=== PATIENT | male | born 1965 | race Caucasian/White ===

== ENCOUNTER 2017-07-17 00:37 | Emergency (ER) | payer BC ==
[~2017-07-17] VITALS: Ht 175.3 cm; Wt 119.9 kg
[2017-07-17 00:39] VITALS: TEMP 36.7; Ht 175.3 cm; Wt 119.9 kg
[2017-07-17] MEDS ORDERED: OXYCODONE HCL IR 5 MG TAB (IMMEDIATE RELEASE) PO STA (01:01)
--- NOTE | 2017-07-17 01:09 | EMERGENCY ROOM VISIT NOTE ---
History Report prepared by Anastacia: Ravindra Mcgovern Under the Supervision of: Dr. Ahmet Carmen M.D. First contact with patient: 00:49 Chief Complaint: KNEEPAIN Stated Complaint: LEG PAIN, KNEE PAIN History of Present Illness The patient is a 51 year old male who presents to the Emergency Room with complaints of persistent right knee swelling for 1.5 hours. He notes that he was out with friends when his right ankle gave out while wearing Crocs and then he banged his right knee into a pole. He notes right knee pain and swelling. He reports soreness to his right ankle. He notes movement worsens his pain. He has a history of left knee total replacement. He has a history of DM and notes baseline tingling in his toes. He regularly takes Metformin. He notes leg swelling. He occasionally takes a baby Aspirin. He is retired. He chews tobacco. Source of History: patient Onset: 1.5 hours ago Position: knee (right) Quality: other (swelling) Timing: other (persistent) Modifying Factors (Worsening): movement Note: He notes right knee pain, right ankle soreness, leg swelling, and tingling in toes. Review of Systems See HPI for pertinent positives & negatives. A total of 10 systems reviewed and were otherwise negative. Past Medical & Surgical Medical Problems: (1) Diabetes Family History No pertinent family history Social History Smoking Status: Never Smoker Smokeless Tobacco Use: Yes Marital Status: single Housing Status: lives with family Occupation Status: retired Current/Historical Medications Scheduled Aspirin (Aspirin Ec), 81 MG PO DAILY Metformin Hcl (Glucophage), 1,000 MG PO BID Valsartan (Diovan), 320 MG PO DAILY Allergies Coded Allergies: No Known Allergies (Unverified , 07/17/17) Physical Exam Vital Signs Date Time Temp Pulse Resp B/P (MAP) Pulse Ox O2 Delivery O2 Flow Rate FiO2 07/17/17 02:10 87 20 114/80 96 Room Air 07/17/17 00:39 36.7 60 20 122/85 95 Room Air Physical Exam GENERAL: Patient is uncomfortable-appearing and in moderate acute distress. EYES: No scleral icterus, unremarkable pupils. ENT: Mucous membranes moist, no nasal congestion. NECK: No masses appreciated, no meningismus, trachea is midline. RESPIRATORY: No dyspnea. Clear to auscultation and equal bilaterally. No wheeze , no rhonchi. CARDIOVASCULAR: Regular rate and rhythm. No murmurs, rubs, gallops appreciated. GASTROINTESTINAL: Abdomen soft, nontender, no peritonitis. Bowel sounds positive. No masses appreciated. BACK: No midline tenderness, no CVA tenderness EXTREMITIES: Mild right effusion, pain with ROM of the right knee. Tenderness with palpation to the medial aspect of right knee. Tenderness with palpation to the mid/distal thigh and medial malleolus. No tenderness to palpation over the tibia/fibula. NEUROLOGIC: Alert and oriented, no acute motor or sensory deficits, no focal weakness, cranial nerves grossly intact. SKIN: No rash, no jaundice, no diaphoresis. Medical Decision & Procedures ER Provider Diagnostic Interpretation: Radiology results and stated below per my review and interpretation: Right Ankle XR: Three view: No fracture. No dislocation. No soft tissue swelling. Right Femur XR: Two view: No fracture. No dislocation. Right Knee XR: Two view: Moderate effusion. Mild arthritic changes. No obvious fracture. No dislocation. Laboratory Results Test 07/17/17 01:48 Bedside Glucose 125 mg/dl (70-99) Laboratory results as reviewed by me. Medications Administered Medications (Trade) Dose Ordered Sig/Topher Route Start Time Stop Time Status Last Admin Dose Admin Oxycodone HCl (Roxicodone Immediate Rel Tab) 5 mg NOW STAT PO 07/17/17 01:01 07/17/17 01:02 DC 07/17/17 01:10 5 MG Oxycodone HCl (Roxicodone Immediate Rel 5MG Home Pack) 1 homepack UD ONCE PO 07/17/17 02:00 07/17/17 02:01 DC 07/17/17 02:12 1 HOMEPACK ED Course 0055: The patient was evaluated in room B10. A complete history and physical exam was performed. 0150: I reassessed the patient at this time. He has crutches at home and wants to go home. I discussed the results and treatment plan with the patient. He will follow up with his PCP if he has continued knee discomfort. I answered all pertaining questions that he had. He expressed understanding and verbalized agreement. The patient will be discharged home. Medical Decision Differential: Fracture, Dislocation, Cellulitis, Septic Joint, Ligamentous Injury, Effusion, DVT, amongst other pathologies entertained. 51 yr old male with right knee pain s/p reported trauma though also noted injuring ankle as well. Imgaing with what looks like effusion though no fractures. No evidence this is septic joint. Symptoms/findings not consistent with DVT. Discussed that we do not emergently do MRIs in patients with knee trauma but that if continued symptoms will need to follow up with PCP. States he has crutches at home. Will given a few Oxy IR to go home with given evidence of effusion from trauma though without fracture I do not feel rx required. He is walking without difficulty as it is. He did ask if I would give him money for a cab which given he has someone with him and he was driven here, I do not feel this would be appropriate. Medication Reconcilliation Current Medication List: was personally reviewed by me Blood Pressure Screening Patient's blood pressure: Normal blood pressure Impression Primary Impression: Sprain of knee Additional Impression: Knee effusion, right Scribe Attestation The scribe's documentation has been prepared under my direction and personally reviewed by me in its entirety. I confirm that the note above accurately reflects all work, treatment, procedures, and medical decision making performed by me. Departure Information Dispostion Home / Self-Care Forms HOME CARE DOCUMENTATION FORM, IMPORTANT VISIT INFORMATION Patient Instructions ED Sprain Knee, My [facility] Additional Instructions You have received a narcotic pain medication. These medications may cause drowsiness and should not be used with other sedative medications. Do not drive , drink alcohol, perform dangerous activities, nor make important decisions after taking these medications. intermediate accountant use or inappropriate use may lead to addiction. Problem Qualifiers
[2017-07-17] MEDS ORDERED: VALS320T PO (01:12)
[2017-07-17] MEDS ORDERED: METF-384 PO (01:13)
[2017-07-17] MEDS ORDERED: ASPI81TA28 PO (01:14)
[2017-07-17] MEDS ORDERED: OXYCODONE IR HOME PACK PO ONE (02:00)
[2017-07-17 02:10] VITALS: BP 114/80; PULSE 87; O2SAT 96
--- NOTE | 2017-07-17 05:33 | DIAGNOSTIC IMAGING REPORT ---
R FEMUR 2 VIEWS ROUTINE CLINICAL HISTORY: 51 years-old Male presenting with mid femur pain s/p trauma. TECHNIQUE: Frontal and lateral views of the right femur were obtained. COMPARISON: None. FINDINGS: Right hip joint and right knee joint grossly congruent. No acute fracture or malalignment. Change osteophytosis at the patellofemoral compartment. Moderate knee joint effusion. IMPRESSION: 1. No acute osseous injury. 2. Moderate knee joint effusion. Electronically signed by: Laci Callaway M.D. 07/17/2017 5:32 AM Dictated Date/Time: 07/17/2017 5:31 AM
--- NOTE | 2017-07-17 05:44 | DIAGNOSTIC IMAGING REPORT ---
R KNEE 1 OR 2 VIEWS ROUTINE CLINICAL HISTORY: 51 years-old Male presenting with right knee pain s/p trauma. TECHNIQUE: Frontal and lateral views of the right knee were obtained. COMPARISON: None. FINDINGS: Slight cortical deformity of the medial aspect of the subchondral medial femoral condyle. No other evidence of fracture or malalignment. Minimal osteophytosis noted in the lateral compartment and patellofemoral compartment. Mild medial joint space loss suggested. Moderate knee joint effusion. IMPRESSION: 1. Findings raise concern for osteochondral lesion at the medial femoral condyle. This may be acute or chronic. This would be better evaluated on noncontrast MR of the knee. 2. Moderate knee joint effusion. 3. Tricompartmental degenerative change. The report will be called/faxed according to standard departmental protocol. Electronically signed by: Laci Callaway M.D. 07/17/2017 5:43 AM Dictated Date/Time: 07/17/2017 5:41 AM
--- NOTE | 2017-07-17 05:46 | DIAGNOSTIC IMAGING REPORT ---
R ANKLE MIN 3 VIEWS ROUTINE CLINICAL HISTORY: 51 years-old Male presenting with right ankle pain, medial. TECHNIQUE: Frontal, mortise, and lateral views of the right ankle were obtained. COMPARISON: None. FINDINGS: No acute fracture or malalignment. Degenerative changes of the ankle mortise. Ankle mortise remains intact. Enthesophyte at the insertion of the Achilles tendon. Mild diffuse soft tissue swelling though this may be due to subcutaneous fat. IMPRESSION: 1. No acute osseous injury. 2. Degenerative changes of the right ankle. Electronically signed by: Laci Callaway M.D. 07/17/2017 5:45 AM Dictated Date/Time: 07/17/2017 5:43 AM
== END 2017-07-17 02:13 | disposition home or self-care (01) ==
LOC: C.EDB 00:39
DX: S83.91XA Sprain of unspecified site of right knee, initial encounter (principal); M25.461 Effusion, right knee; W19.XXXA Unspecified fall, initial encounter; E11.9 Type 2 diabetes mellitus without complications; Z79.82 Long term (current) use of aspirin; Z79.4 Long term (current) use of insulin